=== PATIENT | female | born 2000 | race Caucasian/White ===

== ENCOUNTER → 2020-10-19 | Outpatient (CLI) | payer BC | LOC: LAB 11:03 | DX: D89.89 Other specified disorders involving the immune mechanism, not elsewhere classified (principal); R76.8 Other specified abnormal immunological findings in serum; M25.50 Pain in unspecified joint; D50.9 Iron deficiency anemia, unspecified; R22.9 Localized swelling, mass and lump, unspecified | CPT/HCPCS: 36415; 81001; 82570; 82728; 84156 ==